=== PATIENT | male | born 1990 | race Caucasian/White ===

== ENCOUNTER 2017-04-25 03:30 | Emergency (ER) | payer OTHER ==
[~2017-04-25] VITALS: Ht 185.4 cm; Wt 100.0 kg
[~2017-04-25 03:30] MED LIST: AUGM875 PO; PRED20 PO; Z.0.NO CURRENT MEDS
[2017-04-25 03:31] VITALS: BP 148/82; PULSE 86; RESP 16; TEMP 98.4; O2SAT 96
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
--- NOTE | 2017-04-25 04:18 | PD ---
Physical Exam Date Seen by Provider: Apr 25, 2017 Time Seen by Provider: 04:16 Narrative Skin: Patient has a irregular Z-type laceration involving the right eyebrow. The laceration measures 6 cm. Laceration is into the subcutaneous change tissues involved the forehead as well. Data Data Last Documented VS Vital Signs Date Time Temp Pulse Resp B/P (MAP) Pulse Ox O2 Delivery O2 Flow Rate FiO2 04/25/17 03:31 98.4 86 16 148/82 (104) 96 Room Air Orders Orders Ct Brain W/O Iv Contrast(Rout) (04/25/17 03:45) Ct Cerv Spine W/O Contrast (04/25/17 04:08) MDM Medical Record Reviewed: Yes Supervised Visit with RUTH: Yes Differential Diagnosis MDM: High Differential diagnoses: Fracture, sprain, strain, dislocation, contusion, neurovascular injury Narrative Course Patient's lacerations closed sutures Procedures Procedure Narrative LACERATION LOCATION: Right eyebrow LENGTH: 6 cm NUMBER OF STITCHES/ERASMO: 12 REPAIR: The area of the laceration was prepped with Betadine and sterilely draped. The laceration was infiltrated with 1% lidocaine. The wound was copiously irrigated and explored without evidence of foreign body, tendon injury or neurovascular injury. The wound was closed using 5-0 proline. This was a simple single layer repair. A sterile dressing was applied. The patient was advised to keep the dressing clean and dry. Patient tolerated the procedure well. Additional Instruction: Rest. Head precautions. Ice pack tonight. Tylenol or Advil for pain. Daily wound care with soap, water, Neosporin. Sutures out in 5 days. Sunscreen and mederma for 6 months. Return to the ER for any problems. Med/Other Pt SpecificInfo: Wound Care Disposition: 01 DISCHARGE HOME Condition: Stable Roddy Sandoval Apr 25, 2017 04:18
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
== END 2017-04-25 05:30 | disposition home or self-care (01) ==
LOC: NEPC 03:30
DX: S01.111A Laceration without foreign body of right eyelid and periocular area, initial encounter (principal); S09.90XA Unspecified injury of head, initial encounter; F10.129 Alcohol abuse with intoxication, unspecified; F90.9 Attention-deficit hyperactivity disorder, unspecified type; X58.XXXA Exposure to other specified factors, initial encounter
CPT/HCPCS: 12014; 70450; 72125

== ENCOUNTER 2017-05-02 15:27 | Emergency (ER) | payer OTHER ==
[~2017-05-02] VITALS: Ht 185.4 cm; Wt 100.0 kg
[2017-05-02 15:31] VITALS: BP 147/90; PULSE 86; RESP 13; TEMP 97.7
--- NOTE | 2017-05-02 16:12 | PD ---
HPI Chief Complaint: Wound/Suture/Staple Re-Check Time Seen by Provider: 15:55 Travel History International Travel<30 days: No Contact w/Intl Traveler<30days: No Traveled to known affect area: No History of Present Illness HPI Patient comes in requesting suture removal the right forehead that was placed 7 days ago. Patient denies complaints or concerns with a suture. Reports he's been keeping them dry and clean as possible soap and water. Denies any pain or fevers. Denies any radiation of pain. Patient reports he took some of the The Sutures out Himself Prior to Coming to the Emergency Department but Then Got Concerned Thinking Would Not Be Able Get the Rest on His Own and Decided to come back to the emergency department for further treatment and evaluation. Denies anything making symptoms better or worse. PFSH Past Medical History ADHD: Yes Developmental Delay: No Diminished Hearing: No Immunizations Current: Yes Tetanus Vaccination: < 5 Years Social History Alcohol Use: Yes (OCC) Tobacco Use: No Substance Use: Yes (WEED) Allergies-Medications (Allergen,Severity, Reaction): Coded Allergies: No Known Allergies (Verified Adverse Reaction, Unknown, 04/25/17) Reported Meds & Prescriptions Reported Meds & Active Scripts Active Deltasone (Prednisone) 20 Mg Tab 20 Mg PO BID Augmentin (Amoxicillin/Clavulanate Potassium) 875 Mg Tab 875 Mg PO BID 10 Days Reported No Current Meds (Miscellaneous Medication) [facility] Review of Systems Except as stated in HPI: all other systems reviewed are Neg Physical Exam Narrative GENERAL: Well-developed, overly nourished, in no acute distress, and non-ill appearing. SKIN: Sutures are forehead dry clean intact. They're afebrile, nonerythematous , without drainage. There is minimal scabbing noted. There is no crepitus. HEAD: Atraumatic. Normocephalic. EYES: Pupils equal and round. EOMI. No scleral icterus. No injection or drainage. ENT: No nasal bleeding or discharge. Mucous membranes pink and moist. NECK: Trachea midline. Supple. No nuclear rigidity. RESPIRATORY: No accessory muscle use. No respiratory distress. MUSCULOSKELETAL: No obvious deformities. No clubbing. No cyanosis. No edema. Full range of motion. NEUROLOGICAL: Awake and alert. No obvious cranial nerve deficits. Motor grossly within normal limits. Normal speech. PSYCHIATRIC: Appropriate mood and affect; insight and judgment normal. Data Data Last Documented VS Vital Signs Date Time Temp Pulse Resp B/P (MAP) Pulse Ox O2 Delivery O2 Flow Rate FiO2 05/02/17 16:09 05/02/17 15:31 97.7 86 13 Room Air Orders Orders Ed Discharge Order (05/02/17 16:12) MDM Medical Decision Making Medical Screen Exam Complete: Yes Emergency Medical Condition: Yes Differential Diagnosis Wound check, suture removal, wound infection Narrative Course Patient in no obvious distress upon re-evaluation. Any questions/concerns in reference to patient diagnosis/condition discussed and clarified prior to patient's discharge. Reinforced sheer importance of close follow up with patient 's primary physician or primary care clinic. Instructed patient to return to ED immediately, if symptoms return/worsen. Patient showed understanding of above instructions. Further instructions and recommendations were detailed in discharge paperwork. Patient ambulated without difficulty out of ED at discharge. Procedures Procedure Narrative Verbal consent was obtained. 8 sutures were easily removed. Patient previous removed other sutures. There is no complications. Patient tolerated procedure well. Diagnosis Primary Impression: Encounter for removal of sutures Referrals: [facility] Patient Instructions: General Instructions, Stitches Removal (ED) Additional Instructions: Follow-up with your primary care physician next week for reevaluation. Keep wound dry and clean as possible using soap and water. Use Neosporin to promote healing. Once wound is completely healed make sure to wear sunscreen for the next year to decreased visibility of the scar. Use Mederma [id number] to decrease scar visibility of desired. Follow up with plastic surgeon in the future for scar revision if desired. Return to the emergency department if symptoms get worse. Disposition: 01 DISCHARGE HOME Condition: Stable Marquez Cespedes May 02, 2017 16:12
== END 2017-05-02 16:22 | disposition home or self-care (01) ==
LOC: NEPK 15:27
DX: S01.80XD Unspecified open wound of other part of head, subsequent encounter (principal); X58.XXXD Exposure to other specified factors, subsequent encounter; Z48.02 Encounter for removal of sutures
CPT/HCPCS: 99281